=== PATIENT | female | born 1985 ===

== ENCOUNTER 2020-03-05 13:35 | Outpatient (CLI) | payer OTHER | END 2020-03-05 14:00 | disposition home or self-care (01) | LOC: NST 13:35 | PROVIDERS: ATTEND Obstetrics & Gynecology | DX: Z34.83 Encounter for supervision of other normal pregnancy, third trimester (principal) ==

== ENCOUNTER 2020-03-08 14:28 | Inpatient (IN) | payer OTHER ==
[~2020-03-08] VITALS: Ht 137.2 cm; Wt 62.6 kg
[2020-03-08] MEDS ORDERED: IRON325 MG PO (15:20)
[2020-03-08] MEDS ORDERED: NASAL MIST126 ML (15:20)
[2020-03-08] MEDS ORDERED: PRENATAL TABLE1 EAC3 PO (15:20)
== END 2020-03-10 12:07 | disposition home or self-care (01) | DRG 833 ==
LOC: LDR 14:28
PROVIDERS: ADMIT Obstetrics & Gynecology; ATTEND Obstetrics & Gynecology
PROC: 4A1HXFZ Monitoring of Products of Conception, Cardiac Rhythm, External Approach (ICD-10-PCS; principal; 2020-03-08)
DX: O60.03 Preterm labor without delivery, third trimester (principal); Z3A.28 28 weeks gestation of pregnancy

== ENCOUNTER 2020-03-11 12:06 | Outpatient (CLI) | payer OTHER ==
[~2020-03-11 12:06] MED LIST: IRON325 MG PO; NASAL MIST126 ML; PRENATAL TABLE1 EAC3 PO
== END 2020-03-11 13:38 | disposition home or self-care (01) ==
LOC: NST 12:06
PROVIDERS: ATTEND Obstetrics & Gynecology
DX: Z34.83 Encounter for supervision of other normal pregnancy, third trimester (principal)

== ENCOUNTER 2020-04-02 15:53 | Outpatient (CLI) | payer OTHER | END 2020-04-02 16:20 | disposition home or self-care (01) | LOC: NST 15:53 | PROVIDERS: ATTEND Obstetrics & Gynecology Maternal & Fetal Medicine | DX: Z34.83 Encounter for supervision of other normal pregnancy, third trimester (principal) ==

== ENCOUNTER 2020-04-19 15:47 | Outpatient (CLI) | payer OTHER | END 2020-04-19 17:59 | disposition home or self-care (01) | LOC: NST 15:47 | PROVIDERS: ATTEND Obstetrics & Gynecology | DX: Z34.83 Encounter for supervision of other normal pregnancy, third trimester (principal) ==

== ENCOUNTER 2020-04-22 22:33 | Inpatient (IN) | payer OTHER ==
[~2020-04-22] VITALS: Ht 137.2 cm; Wt 64.0 kg
== END 2020-04-24 09:23 | disposition home or self-care (01) | DRG 833 ==
LOC: OB/GYN 22:33 → LDR 22:33 → OB/GYN 04-23 11:20
PROVIDERS: ADMIT Obstetrics & Gynecology Maternal & Fetal Medicine; ATTEND Obstetrics & Gynecology Maternal & Fetal Medicine
PROC: 4A0HXFZ Measurement of Products of Conception, Cardiac Rhythm, External Approach (ICD-10-PCS; principal; 2020-04-22)
DX: O60.03 Preterm labor without delivery, third trimester (principal); Z3A.35 35 weeks gestation of pregnancy; Z20.828 Contact with and (suspected) exposure to other viral communicable diseases

== ENCOUNTER 2020-05-14 12:14 | Inpatient (IN) | payer OTHER ==
[~2020-05-14] VITALS: Ht 137.2 cm; Wt 65.3 kg
== END 2020-05-16 16:43 | disposition home or self-care (01) | DRG 807 ==
LOC: LDR 12:14 → OB/GYN 19:33
PROVIDERS: ADMIT Obstetrics & Gynecology; ATTEND Obstetrics & Gynecology
PROC: 10E0XZZ Delivery of Products of Conception, External Approach (ICD-10-PCS; principal; 2020-05-14)
PROC: 0W8NXZZ Division of Female Perineum, External Approach (ICD-10-PCS; 2020-05-14)
PROC: 4A1HXFZ Monitoring of Products of Conception, Cardiac Rhythm, External Approach (ICD-10-PCS; 2020-05-14)
DX: O66.0 Obstructed labor due to shoulder dystocia (principal); Z37.0 Single live birth; Z3A.38 38 weeks gestation of pregnancy; Z20.828 Contact with and (suspected) exposure to other viral communicable diseases